=== PATIENT | female | born 1960 ===

== ENCOUNTER 2017-02-11 08:57 | Emergency (ER) | payer SELFPAY ==
[~2017-02-11] VITALS: Ht 167.6 cm; Wt 88.0 kg
[2017-02-11 08:59] VITALS: BP 159/79; PULSE 91; RESP 16; TEMP 98.2; O2SAT 99
--- NOTE | 2017-02-11 09:21 | PD ---
HPI . cortisone injection paperwork Chief Complaint: Pain: Acute or Chronic Time Seen by Provider: 09:21 Travel History International Travel<30 days: No Contact w/Intl Traveler<30days: No Traveled to known affect area: No History of Present Illness HPI 56 yr old female with chronic right foot/ankle pain from over 1 year ago here requesting authorization for cortisone injections. Apparently she is from [place] and recently relocated to [place] and was told by her PCP she would need to come to the ED to be seen and have paperwork submitted to get cortisone injection authorization or released of medications from their office in [place]. She denies any new injuries. PFSH Past Medical History Cerebrovascular Accident: Yes (TIA) ?: Not Past Surgical History Hysterectomy: Yes Social History Tobacco Use: No Allergies-Medications (Allergen,Severity, Reaction): Coded Allergies: No Known Allergies (Unverified , 02/11/17) Review of Systems General / Constitutional: No: Fever Eyes: No: Visual changes HENT: No: Headaches Cardiovascular: No: Chest Pain or Discomfort Respiratory: No: Shortness of Breath Gastrointestinal: No: Abdominal Pain Genitourinary: No: Dysuria Musculoskeletal: Positive: Pain (chronic right ankle/foot pain) Skin: No Rash Neurologic: No: Weakness Psychiatric: No: Depression Endocrine: No: Polydipsia Hematologic/Lymphatic: No: Easy Bruising Physical Exam Narrative GENERAL: AAO x 3, no acute distress, Well-nourished, well-developed patient. SKIN: Warm and dry. No visible rashes or bruising. HEAD: Normocephalic and atraumatic. EYES: No scleral icterus. No injection or drainage. ENT: No nasal drainage noted. Mucous membranes pink. Airway patent. NECK: Supple, trachea midline. No JVD. CARDIOVASCULAR: Regular rate and rhythm without murmurs, gallops, or rubs. RESPIRATORY: Breath sounds equal bilaterally. GASTROINTESTINAL: Visual inspection normal EXTREMITIES: No cyanosis or edema. Right ankle exam and full range of motion, dorsiflexion and plantar flexion normal, pedal pulses intact. BACK: No obvious deformity. NEURO: CN II-12 intact, PSYCH: AAO x 3, normal affect. Data Data Last Documented VS Vital Signs Date Time Temp Pulse Resp B/P Pulse Ox O2 Delivery O2 Flow Rate FiO2 7/17/17 08:59 98.2 91 16 159/79 99 [facility] Medical Decision Making Medical Screen Exam Complete: Yes Emergency Medical Condition: No Medical Record Reviewed: Yes Differential Diagnosis chronic right ankle pain, chronic foot pain, ligamentous injury Narrative Course A medical screening exam was performed: At the time of evaluation the presenting medical condition was determined not to be of an emergent nature. The patient was given the option of receiving additional care, but declined. Patient was given options for additional community resources from which to obtain care. The Patient Has Been advised to seek medical attention for their presenting complaint. The patient has been advised to return to the ER at any time if an emergent condition develops. Patient provided information for [facility]. Diagnosis Primary Impression: Encounter for medical screening examination Condition: Stable Sherrill Jara Feb 11, 2017 09:21
== END 2017-02-11 10:32 | disposition left against medical advice (07) ==
LOC: NEPK 08:57
DX: M25.571 Pain in right ankle and joints of right foot (principal)
CPT/HCPCS: 99281